=== PATIENT | female | born 1975 | race Asian ===

== ENCOUNTER 2023-04-10 14:07 | Emergency (ER) | payer BC ==
[~2023-04-10] VITALS: Ht 144.8 cm; Wt 52.2 kg
[2023-04-10 15:33] LABS: INFLUENZA B NAA NEGATIVE (NEGATIVE); RESPIRATORY SYNCYTIAL VIR NAA NEGATIVE (NEGATIVE)
[2023-04-10 16:06] VITALS: BP 108/69
== END 2023-04-10 16:11 | disposition home or self-care (01) ==
LOC: ED 14:07
PROVIDERS: Emergency Medicine
DX: J10.1 Influenza due to other identified influenza virus with other respiratory manifestations (principal); Z20.822 Contact with and (suspected) exposure to COVID-19
CPT/HCPCS: 87502; 87651; 99283; A9270; U0002